=== PATIENT | male | born 1980 | race Caucasian/White ===

== ENCOUNTER 2016-06-29 20:46 | Emergency (ER) | END 2016-06-29 23:05 | disposition home or self-care (01) ==

== ENCOUNTER 2017-02-12 18:44 | Outpatient (CLI) | payer OTHER | END 2017-02-12 18:45 | disposition critical access hospital (66) | LOC: EMS 18:44 | PROVIDERS: ATTEND Surgery | DX: R51 Headache (principal); V29.49XA Motorcycle driver injured in collision with other motor vehicles in traffic accident, initial encounter; Y92.414 Local residential or business street as the place of occurrence of the external cause | CPT/HCPCS: A0425; A0429 ==

== ENCOUNTER 2017-02-12 19:04 | Emergency (ER) | payer OTHER ==
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
[2017-02-12] MEDS ORDERED: LIDOCAINE 1%-EPI 1:100000 20 ML MDV SUBQ STA (19:39)
[2017-02-12] MEDS ORDERED: LIDOCAINE 2%-EPI 1:100000 20 ML MDV ONE (19:47)
[2017-02-12] MEDS ORDERED: LIDOCAINE MPF 1%-EPI 1:200000 30 ML VIAL ONE (19:48)
[2017-02-12] MEDS ORDERED: KETOROLAC 60 MG/2 ML VIAL IVP STA (20:06)
[2017-02-12] MEDS ORDERED: ACETAMINOPHEN 325 MG TABLET PO STA (20:06)
[2017-02-12] MEDS ORDERED: MORPHINE 2 MG/ML CARPUJECT IVP STA (20:07)
[2017-02-12] MEDS ORDERED: KETOROLAC 30 MG/ML VIAL IVP STA (20:14)
[2017-02-12] MEDS ORDERED: KETOROLAC 30 MG/ML VIAL ONE (20:15)
--- NOTE | 2017-02-12 21:02 | XRAY Preliminary Report ---
Exam: XR Tib/Fib RT IMPRESSION: Normal tibia/fibula radiography. [facility] SITE ID: [id number]
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
[2017-02-12] MEDS ORDERED: HYDROmorphone 1 MG/ML SYRINGE IVP STA (21:20)
[2017-02-12] MEDS ORDERED: ceFAZolin 1 GM in SODIUM CHLORIDE 0.9% MINIBAG 100 ML IV ONE (21:20)
[2017-02-12] MEDS ORDERED: ceFAZolin 1 GM VIAL ONE (21:29)
--- NOTE | 2017-02-12 21:43 | CT Preliminary Report ---
Exam: CT Head W/O IMPRESSION: 1. No intracranial abnormality or skull fracture. 2. Facial bone fractures with bilateral maxillary sinus air-fluid levels. [facility] SITE ID: [id number]
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
--- NOTE | 2017-02-12 21:51 | CT Preliminary Report ---
Exam: CT Facial Bones W/O IMPRESSION: Bilateral [place] fractures, minimally displaced on the left, as well as displaced righ t ZMC fractures. [facility] SITE ID: [id number]
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
--- NOTE | 2017-02-12 22:41 | XRAY Preliminary Report ---
Exam: XR Toe(s) RT IMPRESSION: 1. There is a transverse fracture of the tuft of the distal phalanx of the great toe without signific ant disk space and. 2. Similar nondisplaced fracture through the plantar lateral aspect of the base of the distal phalanx of the great toe. [facility] SITE ID: [id number]
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
[2017-02-12] MEDS ORDERED: HYDROcod/ACET 5/325 Prepack 6 PO ONE ×2 (23:16→23:21)
[2017-02-12 23:33] VITALS: BP 136/79
== END 2017-02-12 23:34 | disposition home or self-care (01) ==
LOC: EDUNIT# → ED 19:04
DX: S01.511A Laceration without foreign body of lip, initial encounter (principal); S92.424A Nondisplaced fracture of distal phalanx of right great toe, initial encounter for closed fracture; S80.11XA Contusion of right lower leg, initial encounter; V23.4XXA Motorcycle driver injured in collision with car, pick-up truck or van in traffic accident, initial encounter
CPT/HCPCS: 12013; 70450; 70486; 73660; 96365; 96366; 96375; 99283; 99284

== ENCOUNTER 2018-03-28 07:43 | Day surgery (SDC) | payer OTHER ==
--- NOTE | 2018-03-28 08:17 | ANESTHESIA ---
Pre-Anesthesia VS, & Labs - Diagnosis right inguinal hernia - Procedure open right inguinal hernia repair with mesh Vital Signs: Temp Pulse Resp BP Pulse Ox 36.1 C L 79 16 108/68 98 03/28/18 07:57 03/28/18 07:57 03/28/18 07:57 03/28/18 07:57 03/28/18 07:57 Height 5 ft 7 in Weight (kg) 110.9 kg Body Mass Index 35.2 - NPO >8 hours - Lab Results Lab results reviewed: Yes Home Medications and Allergies Home Medications: Ambulatory Orders Medication Instructions Recorded Confirmed Melatonin 3 mg PO QPM PRN 03/25/18 03/25/18 Active Medications Cefazolin Sodium 3 gm/ Sodium (Chloride) 100 mls @ 200 mls/hr IV ONCE AYDEE Stop: 03/28/18 10:00 Melatonin 3 mg PO QPM PRN 03/25/18 Allergies/Adverse Reactions: Allergies Allergy/AdvReac Type Severity Reaction Status Date / Time No Known Drug Allergies Allergy Verified 02/12/17 19:12 Anes History & Medical History - Anesthetic History Anesthesia Complications: reports: No previous complications Family history of Anesthesia Complications: Denies Family history of Malignant Hyperthermia: Denies - Medical History Cardiovascular: reports: None Pulmonary: reports: None Gastrointestinal: reports: None Urinary: reports: None Musculoskeletal: reports: None Endocrine/Autoimmune: reports: None Blood Disorders: reports: None Skin: reports: None Smoking Status: Never smoker - Surgical History General: Appendectomy Exam General: Alert, Oriented x3 Dental: WNL Mouth Openin Fingerbreadth Neck Mobility: Normal Mallampati classification: I Thyromental Distance: greater than 6 cm Respiratory: Lungs clear, Normal breath sounds, No respiratory distress, No accessory muscle use Cardiovascular: Regular rate, Normal S1, Normal S2, No murmurs Mental/Cognitive Status: Alert/Oriented X3, Normal for patient Cognitive Status: Within normal limits Plan Anesthesia Type: General Consent for Procedure(s) Verified and Reviewed: Yes Code Status: Attempt Resuscitation ASA classification: 1-Healthy patient Is this case an emergency?: No
[2018-03-28] MEDS ORDERED: LACTATED RINGERS 1,000 ML IV ONE ×2 (08:22→11:16)
[2018-03-28] MEDS ORDERED: BUPIVACAINE 0.5%-EPI 1:200000 PF 30 ML VIAL ONE (08:33)
[2018-03-28] MEDS ORDERED: LIDOCAINE 1%-EPI 1:100000 30 ML MDV ONE (08:34)
[2018-03-28] MEDS ORDERED: BUPIVACAINE 0.5% PF 30 ML VIAL ONE (08:37)
[2018-03-28] MEDS ORDERED: ceFAZolin 3 GM in SODIUM CHLORIDE 0.9% 100ML 100 ML IV SCH (08:45)
[2018-03-28] MEDS ORDERED: ceFAZolin 1 GM VIAL ONE (09:08)
[2018-03-28] MEDS ORDERED: BUPIVACAINE 0.5% PF 30 ML VIAL INFIL ONE ×2 (09:46)
[2018-03-28] MEDS ORDERED: LIDOCAINE MPF 1%-EPI 1:200000 10 ML VIAL IJ ONE ×2 (09:46)
[2018-03-28] MEDS ORDERED: LIDOCAINE-MPF 2% 2 ML AMP SUBQ ONE (10:00)
[2018-03-28] MEDS ORDERED: MIDAZOLAM 2 MG/2 ML VIAL IVP ONE (10:00)
[2018-03-28] MEDS ORDERED: PROPOFOL 200 MG/20 ML VIAL IVP ONE (10:00)
[2018-03-28] MEDS ORDERED: ePHEDrine 50 MG/ML VIAL IVP ONE (10:00)
[2018-03-28] MEDS ORDERED: DEXAMETHASONE 4 MG/ML VIAL IVP ONE (10:00)
[2018-03-28] MEDS ORDERED: KETOROLAC 30 MG/ML VIAL IVP ONE (10:00)
[2018-03-28] MEDS ORDERED: ONDANSETRON 4 MG/2 ML VIAL IVP ONE (10:00)
[2018-03-28] MEDS ORDERED: ACETAMINOPHEN 1,000 MG/100 ML 100 ML IV ONE (10:00)
[2018-03-28] MEDS ORDERED: fentaNYL 100 MCG/2 ML VIAL IVP ONE (10:00)
[2018-03-28] MEDS ORDERED: ONDANSETRON 4 MG/2 ML VIAL IVP PRN (11:07)
[2018-03-28] MEDS ORDERED: oxyCODONE 5 MG TABLET PO PRN (11:07)
[2018-03-28] MEDS ORDERED: IBUPROFEN 600 MG TABLET PO PRN (11:07)
[2018-03-28] MEDS ORDERED: ACETAMINOPHEN 325 MG TABLET PO PRN (11:07)
[2018-03-28] MEDS ORDERED: oxyCODONE 5 MG TABLET ONE (11:50)
[2018-03-28 11:51] VITALS: BP 135/71
--- NOTE | 2018-03-28 20:29 | OPERATIVE REPORT ---
DATE OF SERVICE: 03/28/2018 Physician: Mayank Medrano MD PREOPERATIVE DIAGNOSIS: Symptomatic right inguinal hernia. POSTOPERATIVE DIAGNOSIS: Symptomatic right inguinal hernia, direct. PROCEDURE PERFORMED: Open repair of symptomatic right inguinal hernia with Bard polypropylene mesh. ANESTHESIA: General endotracheal plus local by Orlando Cox CRNA. SURGEON: Mayank Medrano MD. ESTIMATED BLOOD LOSS: Minimal. COMPLICATIONS: None. FINDINGS: A small direct right inguinal hernia was identified. There was no evidence of indirect or femoral hernia. INDICATIONS: Patient is a 37-year-old gentleman with a 2-year history of a reducible painful right groin bulge. He was advised to undergo repair. TECHNIQUE: After informed consent, the patient was taken to the operating room, where he was placed under general endotracheal anesthesia. Preoperative preparation included application of sequential calf compression boots and administration of 3 grams of cefazolin intravenously within an hour of the incision. The abdomen had been clipped and was prepared with ChloraPrep solution and draped in the usual sterile fashion. A right groin block was instituted, using a 50:50 combination of 0.5% Marcaine plain and 1% lidocaine with epinephrine; a total of 40 mL of the mixture was used. A transverse incision was made in the skin lines of the right groin, just above the pubic tubercle and extending laterally approximately 6 cm. Hemostasis achieved with electrocautery. Incision carried down through subcutaneous tissues, until the external oblique aponeurosis was identified and was incised along the lines of its fiber, in such a manner as to open the external ring and expose the internal ring. The spermatic cord was mobilized and encircled with a [place] drain. Search for the ilioinguinal nerve within the canal was made, but was not identified. A small cord lipoma was dissected free from the surrounding cord structures at the level of the internal ring, where it was ligated with 2-0 Vicryl, amputated, and discarded. There was no evidence of an indirect hernia sac. There was weakness in the inguinal floor, consistent with a small direct defect. After hemostasis was assured, the wound was irrigated with antibiotic solution, containing 1 gram of cefazolin per liter, following which, a Bard expanded polypropylene precut slotted mesh was soaked in the antibiotic solution, placed over the inguinal floor, and secured in place circumferentially with continuous 4-0 Prolene sutures. Care was taken to avoid excessive tightening of the patch around the cord at the level of the internal ring. After hemostasis had been assured, the wound was irrigated with antibiotic solution, following which, wound closure was accomplished in layers, using continuous 2-0 Vicryl, re-approximating the external oblique aponeurosis overlying the cord, followed by 3-0 Vicryl for Tabitha's fascia and 4-0 Monocryl subcuticular skin closure, followed by Dermabond. Anesthesia was terminated. The patient was transferred to the recovery room in satisfactory condition. Sponge and needle counts were correct x2, and no drains were used. TD: 03/28/2018 11:22 ERIC
== END 2018-03-28 07:44 | disposition home or self-care (01) ==
LOC: SDS 07:43
PROVIDERS: ATTEND Internal Medicine Gastroenterology
PROC: 0VBF0ZZ Excision of Right Spermatic Cord, Open Approach (ICD-10-PCS; 2018-03-28)
PROC: 0YU50JZ Supplement Right Inguinal Region with Synthetic Substitute, Open Approach (ICD-10-PCS; principal; 2018-03-28 08:45)
DX: K40.90 Unilateral inguinal hernia, without obstruction or gangrene, not specified as recurrent (principal); D17.6 Benign lipomatous neoplasm of spermatic cord; F17.290 Nicotine dependence, other tobacco product, uncomplicated; E66.9 Obesity, unspecified; Z68.38 Body mass index [BMI] 38.0-38.9, adult; Z87.09 Personal history of other diseases of the respiratory system
CPT/HCPCS: 49505; 55520; A9270; C1781; J0131; J3490; J7120

== ENCOUNTER 2018-05-21 19:46 | Emergency (ER) | payer OTHER ==
--- NOTE | 2018-05-21 20:04 | ED Physician Documentation ---
PD HPI OPHTHO - Stated complaint Stated Complaint: EYE PX - Chief complaint Chief Complaint: Heent - History obtained from History obtained from: Patient - History of Present Illness Timing - onset: Other (10 days red left eye with discharge and irritation. Does not wear contacts. No visual deficit.) Review of Systems Constitutional: denies: Fever, Chills Ears: denies: Loss of hearing, Ear pain Nose: denies: Rhinorrhea / runny nose, Congestion PD PAST MEDICAL HISTORY - Past Medical History Cardiovascular: None Respiratory: None Endocrine/Autoimmune: None GI: None : None HEENT: None Psych: None Musculoskeletal: None Derm: None - Past Surgical History Past Surgical History: Yes General: Appendectomy - Present Medications Home Medications: Ambulatory Orders Medication Instructions Recorded Confirmed No Known Home Medications 05/21/18 05/21/18 - Allergies Allergies/Adverse Reactions: Allergies Allergy/AdvReac Type Severity Reaction Status Date / Time No Known Drug Allergies Allergy Verified 05/21/18 19:55 - Social History Does the pt smoke?: No Smoking Status: Never smoker Does the pt drink ETOH?: Yes Does the pt have substance abuse?: No - Immunizations Immunizations are current?: Yes - POLST Patient has POLST: No PD ED PE NORMAL - Vitals Vital signs reviewed: Yes - General General: Alert and oriented X 3, No acute distress - HEENT HEENT: PERRL, EOMI, Other (Mild viral appearing conjunctivitis of the left eye without chemosis) - Neck Neck: Supple, no meningeal sign, No bony TTP - Neuro Neuro: Alert and oriented X 3, Normal speech Results - Vitals Vitals: Vital Signs - 24 hr 05/21/18 19:53 Temperature 36.8 C Heart Rate 91 Respiratory 16 Rate Blood Pressure 147/88 H O2 Saturation 97 Oxygen O2 Source Room air Departure - Departure Disposition: Home, Self Care Clinical Impression: Viral conjunctivitis Condition: Good Record reviewed to determine appropriate education?: Yes Instructions: ED Conjunctivitis Viral Ch Comments: Your blood pressure was elevated today on check into the emergency department. This does not mean that you have hypertension, it is a common phenomenon to come to the emergency department and have elevated blood pressure. I recommend that you see your primary care physician within the week to have it rechecked when you are feeling better.
[2018-05-21 20:14] VITALS: BP 136/74
== END 2018-05-21 20:13 | disposition home or self-care (01) ==
LOC: ED 19:46
DX: B30.9 Viral conjunctivitis, unspecified (principal); R03.0 Elevated blood-pressure reading, without diagnosis of hypertension
CPT/HCPCS: 99282; 99283

== ENCOUNTER 2021-07-13 12:37 | Outpatient (CLI) | payer OTHER ==
[2021-07-13 17:22] LABS: BILIRUBIN,URINE NEGATIVE (NEGATIVE); GLUCOSE, URINE (UA) NEGATIVE (NEGATIVE); KETONES,URINE (UA) NEGATIVE (NEGATIVE); LEUKOCYTE ESTERASE, URINE NEGATIVE (NEGATIVE); NITRITE,URINE NEGATIVE (NEGATIVE); OCCULT BLOOD,URINE NEGATIVE (NEGATIVE); PROTEIN,URINE NEGATIVE (NEGATIVE); UROBILINOGEN,URINE 0.2 (NORMAL) E.U./dL (NORMAL)
[2021-07-13 17:56] LABS: CLARITY,URINE CLEAR (CLEAR)
== END 2021-07-13 23:59 | disposition home or self-care (01) ==
LOC: LAB.N 12:37
PROVIDERS: ATTEND Nurse Practitioner
DX: R10.9 Unspecified abdominal pain (principal)
CPT/HCPCS: 81001; 81003; 87086

== ENCOUNTER 2021-07-13 13:46 | Outpatient (CLI) | payer OTHER ==
[2021-07-13 14:11] LABS: BASOPHILS % (AUTO) 0.4 %; EOSINOPHILS # (AUTO) 0.1 10^3/uL (0.0-0.7); EOSINOPHILS % (AUTO) 0.8 %; HCT - HEMATOCRIT 46.7 % (42.0-52.0); HGB - HEMOGLOBIN 16.1 g/dL (14.0-18.0); LYMPHOCYTES # (AUTO) 1.9 10^3/uL (1.5-3.5); LYMPHOCYTES % (AUTO) 26.5 %; MEAN CORPUSCULAR HEMOGLOBIN 30.4 pg (27.0-31.0); MEAN CORPUSCULAR HGB CONC 34.5 g/dL (32.0-36.0); MEAN CORPUSCULAR VOLUME 88.1 fL (80.0-94.0); MEAN PLATELET VOLUME 9.8 fL (7.4-11.4); MONOCYTES # (AUTO) 0.8 10^3/uL (0.0-1.0); NEUTROPHILS # (AUTO) 4.4 10^3/uL (1.5-6.6); NEUTROPHILS % (AUTO) 60.7 %; PLT - PLATELET COUNT 275 10^3/uL (130-450); RED CELL DISTRIBUTION WIDTH 12.3 % (12.0-15.0); WHITE BLOOD COUNT 7.3 x10^3/uL (4.8-10.8)
[2021-07-13 14:21] LABS: ALBUMIN 4.5 g/dL (3.2-5.5); ALBUMIN/GLOBULIN RATIO 1.4 (1.0-2.2); BILIRUBIN,TOTAL 0.5 mg/dL (0.2-1.0); CALCIUM 9.4 mg/dL (8.5-10.3); CREATININE 0.8 mg/dL (0.6-1.2); POTASSIUM 4.3 mmol/L (3.5-5.0); TOTAL PROTEIN 7.8 g/dL (6.7-8.2)
== END 2021-07-13 13:47 | disposition home or self-care (01) ==
LOC: LAB 13:46
PROVIDERS: ATTEND Nurse Practitioner
DX: R10.9 Unspecified abdominal pain (principal)
CPT/HCPCS: 36415; 80053; 81001; 81003; 82150; 83690; 85025; 87086

== ENCOUNTER 2021-08-20 08:12 | Outpatient (CLI) | payer OTHER ==
--- NOTE | 2021-08-20 17:07 | Ultrasound Report ---
PROCEDURE: Abdomen Limited INDICATIONS: RUQ PAIN TECHNIQUE: Real-time scanning was performed of the abdominal and retroperitoneal organs, with image documentatio n. COMPARISON: None. FINDINGS: Liver: Liver is normal in size and increased in echotexture. Gallbladder: No stones. Wall is normal thickness measuring 1.4 mm. Biliary ducts: Intrahepatic bile ducts are non-dilated. Extrahepatic bile duct caliber measures 4.7 mm. Normal is 6-7 mm or less in diameter, or 10 mm or less post-cholecystectomy. Pancreas: Not well seen. Spleen: Spleen is normal in size and homogeneous in echotexture. Kidneys: Right kidney measures 11.8 cm long. No hydronephrosis or nephrolithiasis. No solid lupe s. IMPRESSION: Hepatic steatosis. Gallbladder is unremarkable. Reviewed by: Ember Garcia MD on 08/20/2021 5:05 PM PST Approved by: Ember Garcia MD on 08/20/2021 5:05 PM PST Station ID: [id number]
== END 2021-08-20 08:13 | disposition home or self-care (01) ==
LOC: DI 08:12
PROVIDERS: ATTEND Internal Medicine
DX: K76.0 Fatty (change of) liver, not elsewhere classified (principal)